=== PATIENT | female | born 1990 | race Caucasian/White ===

== ENCOUNTER 2025-02-09 17:00 | Outpatient (CLI) | payer OTHER, SELFPAY ==
--- OUTSIDE RECORDS SUMMARY | 2025-02-10 17:04 | XMS_ITS | Encounter Summary ---
Author Organization [employer] ([place], [place], [place], [place], [place]) Address [address] [place] [address] Care Team Providers Care Outpatient Coding Specialist Name Role Phone Unavailable Primary Care Provider Unavailabl e Encounter Details Date Type Department Care Team (Late st Contact Info) Description 05/03/2018 Transcribed Document [facility] [place] Family Medicine [facility] [place] [address] ProviderKatty MD [facility] [place] [address] Social History Tobacco Use Types Packs/Day Years Used Date Smoking Tobacco: Never Assessed Comments Unknown Sex and Gender Information Value Date Recorded Sex Assigned at Female 09/27/2021 8:27 PM CDT Legal Sex Female 8:27 PM CDT Gender Identity Female 09/27/2021 8:27 PM CDT Sexual Orientation Not on file documented as of this encounter Miscellaneous Notes * Cerner Conversion Note - Katty ProviderMD - 05/03/2018 8:26 AM APPLICATION SUPPORT ADMINISTRATOR ED Assessment Entered On: 05/03/2018 8:51 EST Performed On: 05/03/2018 8:51 EST by SHREE WAGNER RN ED Quick Look Assessment Level of Consciousness : Alert Affect/Behavior : Calm, Cooperative SHREE WAGNER RN - 05/03/2018 8:51 EST ED General-Functional Assess Communication Barrier : None Primary Language : Bengali Any Spiritual/Cultural Needs or Requests : No Currently in Unsafe Situation : No SHREE WAGNER RN - 05/03/2018 8:51 EST Social Habits Smoking Status : Never (less than 100 in lifetime; none in last 30 days) Smokeless Tobacco Status : Never Desires Tobacco Cessation Calc : 0 SHREE WAGNER RN - 05/03/2018 8:51 EST Social History (As Of: 05/03/2018 08:51:56 EST) Tobacco: Never (less than 100 in lifetime) Smoking Status. (Last Updated: 05/03/2018 08:38:38 EST by SHREE WAGNRE RN) Respiratory Respiratory Assessment WDL : WDL SHREE WAGNER RN - 05/03/2018 8:51 EST Gastrointestinal ED Gastrointestinal Assessment WDL : WDL with exceptions Gastrointestinal Symptoms : Abdominal pain, Nausea SHREE WAGNER RN - 05/03/2018 8:51 EST Genitourinary Assessment, ED Genitourinary Assessment WDL : WDL with exceptions Genitourinary Symptoms : Hematuria Genitorurinary Notes : C/O LEFT FLANK PAIN SHREE WAGNER RN - 05/03/2018 8:51 EST Electronically signed by Ken [facility] Conversion Cruise Agent Cerner at 07/17/2022 1:46 PM CDT documented in this encounter Plan of Treatment Not on file documented as of this encounter Visit Diagnoses Not on filedocumented in this encounter
--- OUTSIDE RECORDS SUMMARY | 2025-02-10 17:04 | XMS_ITS | Encounter Summary ---
Author Organization [employer] ([place], [place], [place], [place], [place]) Address [address] [place] [address] Care Team Providers Care Revenue Stamper Name Role Phone Unavailable Primary Care Provider Unavailabl e Encounter Details Date Type Department Care Team (Late st Contact Info) Description 05/03/2018 Transcribed Document [facility] Family Medicine [facility] [place] [address] ProviderKatty MD [facility] [place] [address] Social History Tobacco Use Types Packs/Day Years Used Date Smoking Tobacco: Never Assessed Comments Unknown Sex and Gender Information Value Date Recorded Sex Assigned at Female 09/27/2021 8:27 PM CDT Legal Sex Female 8:27 PM CDT Gender Identity Female 09/27/2021 8:27 PM CDT Sexual Orientation Not on file documented as of this encounter Miscellaneous Notes * Cerner Conversion Note - Historical ProviderMD - 05/03/2018 1:44 PM DELIVERY OF SHOPPING NEWS ED Discharge Entered On: 05/03/2018 13:44 EST Performed On: 05/03/2018 13:44 EST by SHREE WAGNER RN Discharge Process Patient Disposition : Discharge Personal Belongings With Patient : Yes Patient Education Completed : Yes Teaching Evaluation : Verbalizes understanding IV Discontinued : Yes Nursing Documentation Completed : Yes SHREE WAGNER RN - 05/03/2018 13:44 EST documented in this encounter Plan of Treatment Not on file documented as of this encounter Visit Diagnoses Not on filedocumented in this encounter
--- OUTSIDE RECORDS SUMMARY | 2025-02-10 17:04 | XMS_ITS | Encounter Summary ---
Author Organization [employer] ([place], [place], [place], [place], [place]) Address [address] [place] [address] Care Team Providers Care Pig Machine Crane Operator Name Role Phone Unavailable Primary Care Provider Unavailabl e Encounter Details Date Type Department Care Team (Late st Contact Info) Description 05/03/2018 Transcribed Document [facility] Family Medicine [facility] [place] [address] ProviderKatty MD [address] [place] [address] Social History Tobacco Use Types Packs/Day [...] - Katty ProviderMD - 05/03/2018 8:26 AM COMPUTER NETWORK ENGINEER ED Triage Entered On: 05/03/2018 8:38 EST Performed On: 05/03/2018 8:36 EST by SHREE WAGNER RN ED Triage Across the Room Triage Date/Time : 05/03/2018 8:36 EST Chief Complaint : C/O LEFT SIDED FLANK PAIN SINCE LAST NIGHT, + HEMATURIA SHREE WAGNER RN - 05/03/2018 8:36 EST DCP GENERIC CODE Tracking Acuity : 3 - Urgent Tracking Group : [facility] [place] SHREE WAGNER RN - 05/03/2018 8:36 EST Mode of Arrival : Ambulatory Transported to ED by : Private vehicle To Room Via : Ambulate Accompanied By : Unaccompanied ED Vital Signs : Document Height & Weight : Document ED Allergies : Document ED Reason for Visit : Document SHREE WAGNER RN - 05/03/2018 8:36 EST Infectious Disease History Infectious Disease History : None Fever/Chills Last 48 Hours : No Travel To Regions with Travel Advisories : No Travel Outside [place] Within Last 30 Days : No Contact With Traveler to Advisory Region : No Tuberculosis Symptoms : None SHREE WAGNER RN - 05/03/2018 8:36 EST Vital Signs ED Temperature Mode : Fahrenheit Temperature, Fahrenheit : 98.6 Deg F Clinical Temperature, C : 37 Deg C Peripheral Pulse Rate : 88 bpm Respiratory Rate : 18 Breaths/Min Systolic Blood Pressure : 135 mmHg Diastolic Blood Pressure : 72 mmHg Oxygen Saturation : 99 % SHREE WAGNER RN - 05/03/2018 8:36 EST Allergy (As Of: 05/03/2018 08:38:02 EST) Allergies (Active) penicillin Estimated Onset Date: Unspecified ; Created By: SHREE WAGNER RN; Reaction Status: Active ; Category: Drug ; Substance: penicillin ; Type: Allergy ; Updated By: SHREE WAGNER RN; Reviewed Date: 05/03/2018 8:37 EST sulfa drugs Estimated Onset Date: Unspecified ; Created By: SHREE WAGNER RN; Reaction Status: Active ; Category: Drug ; Substance: sulfa drugs ; Type: Allergy ; Updated By: SHREE WAGNER RN; Reviewed Date: 05/03/2018 8:37 EST Diagnosis Control ED (As Of: 05/03/2018 08:38:02 EST) Problems(Active) IBS (irritable bowel syndrome) (SNOMED CT :74035000 ) Name of Problem: IBS (irritable bowel syndrome) ; Recorder: SHREE WAGNER RN; Confirmation: Confirmed ; Classification: Medical ; Code: [id number] ; Contributor System: PowerChart ; Last Updated: 05/03/2018 8:37 EST ; Life Cycle Date: 05/03/2018 ; Life Cycle Status: Active ; Vocabulary: SNOMED CT PCOS (polycystic ovarian syndrome) (SNOMED CT :180407008 ) Name of Problem: PCOS (polycystic ovarian syndrome) ; Recorder: SHREE WAGNER RN; Confirmation: Confirmed ; Classification: Medical ; Code: [id number] ; Contributor System: LiquidHubChart ; Last Updated: 05/03/2018 8:37 EST ; Life Cycle Date: 05/03/2018 ; Life Cycle Status: Active ; Vocabulary: SNOMED CT Diagnoses(Active) Flank pain Date: 05/03/2018 ; Diagnosis Type: Reason For Visit ; Confirmation: Complaint of ; Clinical Dx: Flank pain ; Classification: Medical ; Clinical Service: Emergency medicine ; Code: PNED ; Probability: 0 ; Diagnosis Code: [id number] ED Height and Weight Height Source : Stated Height Entry Format : [place] Height, Feet : 5 ft(Converted to: 152 cm, 60 Inch) Height, Inches : 10 Inch(Converted to: 0 ft 10 Inch, 25.40 cm) Clinical Height : 177.8 cm Weight Source, ED : Critical estimated dosing weight Weight Entry Format : [place] Weight, Pounds : 265 lb Clinical Dosing Weight : 120.45 kg Body Surface Area (BSA) : 2.35 m2 Body Mass Index : 38.1 kg/m2 (HI) [place] Body Weight (IBW) : 68.02 kg SHREE WAGNER RN - 05/03/2018 8:36 EST Electronically signed by Ken [facility] Conversion Corner Brace Block Machine Operator Cerner at 07/17/2022 1:40 PM CDT documented in this encounter Plan of Treatment Not on file documented as of this encounter Visit Diagnoses Not on filedocumented in this encounter
--- OUTSIDE RECORDS SUMMARY | 2025-02-10 17:04 | XMS_ITS | Encounter Summary ---
Author Organization [employer] ([place], [place], [place], [place], [place]) Address [address] [place] [address] Care Team Providers Care Wood Window And Door Craftsman Name Role Phone Unavailable Primary Care Provider Unavailabl e Encounter Details Date Type Department Care Team (Late st Contact Info) Description 05/03/[address] [facility] [place] Family Medicine [place] [address] ProviderKatty [place] [address] Social History Tobacco Use Types [...] Conversion Note - Historical ProviderMD - 05/03/2018 8:58 AM AFTER SCHOOL PROGRAM COORDINATOR Pain Assessment Entered On: 05/03/2018 9:54 EST Performed On: 05/03/2018 9:53 EST by SHREE WAGNER RN Intervention Information: morphine Performed by SHREE WAGNER RN on 05/03/2018 09:09:00 EST morphine,4mg IV Push,Forearm Left Pain Assessment Pain Assessment : Follow-up assessment Pain Scale Used : 0-10 Scale SHREE WAGNER RN - 05/03/2018 9:53 EST Pain Scale Intensity : 5 SHREE WAGNER RN - 05/03/2018 9:53 EST Image 4 - Images currently included in the form version of this document have not been included in the text rendition version of the form. documented in this encounter Plan of Treatment Not on file documented as of this encounter Visit Diagnoses Not on filedocumented in this encounter
--- OUTSIDE RECORDS SUMMARY | 2025-02-10 17:04 | XMS_ITS | Encounter Summary ---
Author Organization [employer] ([place], [place], [place], [place], [place]) Address [address] [place] [address] Care Team Providers Care Application Support Manager Name Role Phone Unavailable Primary Care Provider Unavailabl e Encounter Details Date Type Department Care Team (Late st Contact Info) Description 05/03/2018 Transcribed Document [facility] [place] Family Medicine [facility] [place] [address] ProviderKatty MD [facility] [place] [address] Social History Tobacco Use Types [...] Conversion Note - Katty ProviderMD - 05/03/2018 1:45 PM DISPATCH OFFICER [address] [place] [address] PERSON INFORMATION Name BREONNA COOPER Age 28 Years 1990 Sex Female Language Montserratian PCP [address]ODI [address] Marital Status Med Service Emergency Medicine Acct# Arrival 05/03/2018 08:26:00 Visit Reason Flank pain; ABDOMINAL PAIN, LEFT SIDE PAIN Acuity 3 - Urgent LOS 000 05:19 Depart Date: 05/03/18 01:45 PM Address: [place] [address] Comment: PROVIDER INFORMATION Provider Role Assigned Unassigned SHREE WAGNER, SHIRT CLOSER Nurse 05/03/2018 08:38:10 BHAVYA HONEYCUTT MD-[facility] ED Physician 05/03/2018 08:39:18 DIAGNOSIS Flank pain; Pyelonephritis PHYS DOC NOTES VITALS INFORMATION Vital Sign Triage Latest Temp Source Temp Mode Fahrenheit Fahrenheit Temp Fahrenheit 98.6 Deg F 98.6 Deg F Temp Celsius 02 Sat 99 % 96 % Respiratory Rate 18 Breaths/Min 18 Breaths/Min Peripheral Pulse Rate 88 bpm 88 bpm Apical Heart Rate Blood Pressure 135 mmHg / 72 mmHg 114 mmHg / 58 mmHg Comment: MEDICAL INFORMATION Allergy Info: sulfa drugs; penicillin Medications: Prescription Display acetaminophen-hydrocodone ([place] 5 mg-325 mg oral tablet) 1 Tab, Oral, Q6H, PRN for pain, X 2 Day(s), # 8 Tab, 0 Refill(s) cefUROXIME (Ceftin 500 mg oral tablet) 1 Tab, Oral, BID, X 10 Day(s), # 20 Tab, 0 Refill(s) Comment: DISCHARGE INFORMATION Discharge Disposition: Home Discharge Location: PATIENT EDUCATION INFORMATION Instructions: Flank Pain, Adult; Pyelonephritis, Adult Follow up: With: Address: When: Return to emergency department Within As needed Comments: Return if condition worsens With: Address: When: COLLIN WAGGONER [address] [place] [address], [address] [place] [address] [facility] () Within 2 to 3 days With: Address: When: Patient Resource Center Within As needed Comments: For assistance in the future with finding a primary care physician please contact the Patient Resource Center [phone]. Comment: documented in this encounter Plan of Treatment Not on file documented as of this encounter Visit Diagnoses Not on filedocumented in this encounter
--- OUTSIDE RECORDS SUMMARY | 2025-02-10 17:04 | XMS_ITS | Encounter Summary ---
Author Organization [employer] ([place], [place], [place], [place], [place]) Address [address] [place] [address] Care Team Providers Care Water Supply Engineer Name Role Phone Unavailable Primary Care Provider Unavailabl e Encounter Details Date Type Department Care Team (Late st Contact Info) Description 05/03/2018 Transcribed Document [facility] [place] [facility] [place] [address] ProviderKatty MD [facility] [place] [address] Social History Tobacco Use Types [...] Conversion Note - Historical ProviderMD - 05/03/2018 10:35 AM PROTECTION SPECIALIST Pain Assessment Entered On: 05/03/2018 12:00 EST Performed On: 05/03/2018 12:00 EST by SHREE WAGNER RN Intervention Information: morphine Performed by DAVID DUBON on 05/03/2018 11:04:00 EST morphine,4mg IV Push,Peripheral Line 1 Pain Assessment Pain Assessment : Follow-up assessment Pain Scale Used : 0-10 Scale SHREE WAGNER RN - 05/03/2018 12:00 EST Pain Scale Intensity : 4 SHREE WAGNER RN - 05/03/2018 12:00 EST Image 4 - Images currently included in the form version of this document have not been included in the text rendition version of the form. documented in this encounter Plan of Treatment Not on file documented as of this encounter Visit Diagnoses Not on filedocumented in this encounter
--- OUTSIDE RECORDS SUMMARY | 2025-02-10 17:04 | XMS_ITS | Encounter Summary ---
Author Organization [employer] ([place], [place], [place], [place], [place]) Address [address] [place] [address] Care Team Providers Care Scheduler Conveyor Name Role Phone Unavailable Primary Care Provider Unavailabl e Encounter Details Date Type Department Care Team (Late st Contact Info) Description 05/03/2018 Transcribed Document [facility] [place] [facility] [place] [address] ProviderKatty MD [facility] [place] [address] Social History Tobacco Use Types [...] Conversion Note - Historical ProviderMD - 05/03/2018 1:28 PM BRAIDING MACHINE TENDER Electronically signed by Ken [facility] Conversion Pocket Creaser Cerner at 07/17/2022 1:42 PM CDT documented in this encounter Plan of Treatment Not on file documented as of this encounter Visit Diagnoses Not on filedocumented in this encounter
--- OUTSIDE RECORDS SUMMARY | 2025-02-10 17:04 | XMS_ITS | Encounter Summary ---
Author Organization [employer] ([place], [place], [place], [place], [place]) Address [address] [place] [address] Care Team Providers Care Egg Sorter Name Role Phone Unavailable Primary Care Provider Unavailabl e Encounter Details Date Type Department Care Team (Late st Contact Info) Description 05/03/2018 Transcribed Document [facility] [place] [facility] [place] [address] ProviderKatty MD [facility] [place] [address] Social History Tobacco Use Types Packs/Day Years Used Date Smoking Tobacco: Never Assessed Comments Unknown Sex and Gender Information Value Date Recorded Sex Assigned at Female 09/27/2021 8:27 PM CDT Legal Sex Female 8:27 PM CDT Gender Identity Female 09/27/2021 8:27 PM CDT Sexual Orientation Not on file documented as of this encounter Miscellaneous Notes * Cerner Conversion Note - Katty Payton MD - 05/03/2018 8:57 AM 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 History source: Patient. Arrival mode: Private vehicle, walking. History limitation: None. Additional information: Chief Complaint from Nursing Triage Note : Chief Complaint 05/03/2018 8:36 EST Chief Complaint C/O LEFT SIDED FLANK PAIN SINCE LAST NIGHT, + HEMATURIA . History of Present Illness The patient presents with flank pain. The onset was 1 days ago. The course/duration of symptoms is constant. The character of symptoms is sharp. The degree at onset was minimal. The Location of pain at onset was left and flank. The degree at present is moderate. The Location of pain at present is left and flank. Radiating pain: none. The exacerbating factor is none. The relieving factor is none. Therapy today: see nurses notes. Risk factors consist of Irritable bowel syndrome. Associated symptoms: nausea, denies chest pain, denies vomiting, denies diarrhea, denies back pain, denies shortness of breath, denies fever, denies chills, denies headache and denies dizziness. Patient complaining of pain in her left flank started last night, complaining of nausea, dysuria and hematuria no fever or chills no vomiting or diarrhea. Review of Systems Constitutional symptoms: No fever, no chills, no decreased activity. Skin symptoms: No rash, no pruritus, no harmon, no petechiae, no lesion. Eye symptoms: No recent vision problems, no pain, no discharge. ENMT symptoms: No ear pain, no sore throat, no nasal congestion. Respiratory symptoms: No shortness of breath, no cough. Cardiovascular symptoms: No chest pain, no palpitations, no tachycardia, no syncope, no diaphoresis, no peripheral edema. Gastrointestinal symptoms: Nausea, no vomiting, no diarrhea. Genitourinary symptoms: Dysuria, hematuria, no vaginal bleeding, no vaginal discharge. Musculoskeletal symptoms: No back pain, no Muscle pain, no Joint pain. Neurologic symptoms: No headache, no dizziness, no altered level of consciousness. Psychiatric symptoms: No anxiety, no depression. Endocrine symptoms: No polyuria, Hematologic/Lymphatic symptoms: Bleeding tendency negative, Allergy/immunologic symptoms: No seasonal allergies, Additional review of systems information: No recent travel or surgery. No Abx recently. No change in meds recently No history of trauma or injury Denies IVDA . Health Status Allergies: Allergic Reactions (Selected) Severity Not Documented Penicillin- No reactions were documented. Sulfa drugs- No reactions were documented.. Medications: Per nurse's notes. Immunizations: Per nurse's notes. Menstrual history: Last menstrual period: Date 03/16/2019. Past Medical/ Family/ Social History Medical history Reviewed as documented in chart. Gastrointestinal: irritable bowel syndrome. Genitourinary: PCOS. Surgical history: No active procedure history items have been selected or recorded., Reviewed as documented in chart. Family history: No family history items have been selected or recorded., Reviewed as documented in chart. Social history: Social & Psychosocial Habits Tobacco 05/03/2018 Smoking Status Never (less than 100 in l , Reviewed as documented in chart. Problem list: Active Problems (2) IBS (irritable bowel syndrome) PCOS (polycystic ovarian syndrome) , per nurse's notes. Physical Examination Vital Signs Vital Signs/Vital Measures 05/03/2018 8:36 EST Temperature Mode Fahrenheit Temperature, Fahrenheit 98.6 Deg F Clinical Temperature, C 37 Deg C Peripheral Pulse Rate 88 bpm Respiratory Rate 18 Breaths/Min Systolic Blood Pressure 135 mmHg Diastolic Blood Pressure 72 mmHg Oxygen Saturation 99 % . Measurements 05/03/2018 8:36 EST Height Source Stated Height Entry Format [place] Height/Length, CITIZEN [place] (ft) 5 ft Height/Length CITIZEN [place] 10 Inch CLINICALHEIGHT 177.8 cm [place] Body Weight 68.02 kg Weight Source, ED Critical estimated dosing weight Weight Entry Format [place] Weight Citizen [place] lb 265 lb CLINICALWEIGHT 120.45 kg Body Surface Area (BSA) 2.35 m2 Body Mass Index 38.1 kg/m2 HI . Oxygen Saturation 05/03/2018 8:36 EST Oxygen Saturation 99 % . General: Alert, no acute distress. Skin: Warm, dry, pink, intact, no pallor, no rash, not cyanotic, not cool, not pale. Head: Normocephalic, atraumatic. Neck: Supple. Eye: Pupils are equal, round and reactive to light, extraocular movements are intact, normal conjunctiva. Ears, nose, mouth and throat: Oral mucosa moist, no pharyngeal erythema or exudate, Hearing unchanged. Cardiovascular: Regular rate and rhythm, No murmur, Normal peripheral perfusion, No edema, no cardiac rub, no click. Respiratory: Lungs are clear to auscultation, respirations are non-labored, breath sounds are equal, Symmetrical chest wall expansion. Chest wall: No tenderness, No deformity. Back: Nontender, Normal range of motion, Normal alignment, no step-offs. Musculoskeletal: Normal ROM, normal strength, no tenderness, no swelling, no deformity. Gastrointestinal: Soft, Non distended, Tenderness: Mild, left flank, Guarding: Negative, Rebound: Negative, Bowel sounds: Normal, Organomegaly: Negative, Trauma: Negative, Mass: Negative, Signs: None. Neurological: Alert and oriented to person, place, time, and situation, No focal neurological deficit observed, CN II-XII intact, normal motor observed, normal speech observed, normal coordination observed. Lymphatics: No lymphadenopathy. Psychiatric: Cooperative, appropriate mood & affect, normal judgment. Medical Decision Making Differential Diagnosis: Bowel obstruction, bowel perforation, renal stone, ureteral stone, pancreatitis, urinary tract infection, pyelonephritis, peptic ulcer disease, gastritis, diverticulitis, constipation. Documents reviewed: Emergency department nurses' notes. Results review: Lab results : Lab Results 05/03/2018 8:59 EST Sodium Level 138 mmol/L Potassium Level 3.8 mmol/L Chloride Level 106 mmol/L Carbon Dioxide Level 25 mmol/L Anion Gap 11 Glucose Level 88 mg/dL Blood Urea Nitrogen 7 mg/dL Creatinine Level 0.62 mg/dL eGFR >60 mL/min/1.73m2 eGFR NonAfrican >60 mL/min/1.73m2 Bun/Creatinine 11.3 Calcium Level 8.6 mg/dL Protein Total 7.6 Gram/dL Albumin Level 3.5 Gram/dL Globulin 4.1 Gram/dL A/G Ratio 0.9 LOW Bilirubin Total 0.3 mg/dL Alk Phos 93 Units/Liter AST 15 Units/Liter ALT 29 Units/Liter Lipase Level 61 Units/Liter LOW WBC 8.2 K/uL RBC 4.40 Million/uL Hgb 13.0 Gram/dL Hct 39.6 % MCV 90.0 fL MCH 29.5 pg MCHC 32.8 Gram/dL Platelet Count 253 K/uL MPV 10.5 fL RDW 12.6 % Neut % 70.3 % Neut # 5.80 K/uL Lymph % 19.7 % Lymph # 1.62 K/uL [place] % 6.9 % [place] # 0.57 K/uL Eos % 2.2 % Eos # 0.18 K/uL Baso % 0.5 % Baso # 0.04 K/uL Slide Review No IG# 0 x10(3)/uL IG% 0 % Urine Type U CleanCatch Urine Color Yellow Urine Appearance Clear Urine Specific [place] 1.012 Urine pH Dipstick 6.0 Urine Leukocyte Esterase Large Urine Nitrite Positive Urine Protein Dipstick 30 Urine Glucose Dipstick Negative Urine Ketones Dipstick Negative Urine Urobilinogen Dipstick 0.2 EU/dL Urine Bilirubin Dipstick Negative Urine Blood Dipstick Large Ur RBC 10-20 /HPF Ur WBC 50-100 /HPF Ur WBC Clumps Present Ur Bacteria 2+ Ur Squamous Epithelial Cells 2-5 /HPF HCG Urine Qualitative Negative . Notes: Radiology Results (Last 48 hours) [id number] -- 05/03/2018 08:26 CT Abdomen Pelvis WO (05/03/2018 09:45) Result: CT ABDOMEN AND PELVIS WITHOUT CONTRASTHISTORY: Left lower back and flank pain TECHNIQUE: Axial CT images of the abdomen and pelvis were obtainedwithout contrast. Coronal reformatted images were also obtained.Thisstudy was performed with techniques to keep radiation doses as low asreasonably achievable, (ALARA). Individualized dose reduction techniquesusing automated exposure control or adjustment of mA and/or kV accordingto the patient size were employed.FINDINGS: ABDOMEN: There is left base atelectasis. There is mild perinephricstranding bilaterally with mild fullness of the collecting systemssuggestive of infection. There is no hydronephrosis or nephrolithiasis. The liver, gallbladder, spleen and pancreas have an unremarkableunenhanced appearance. No mass or adenopathy is seen. PELVIS: Images of the pelvis reveal concentric, mild urinary bladderwall thickening with mild adjacent inflammation consistent withcystitis. Uterus and adnexal structures are normal. The appendix isnormal. There is moderate right-sided stool with some debris in theterminal ileum. There are a few scattered mesenteric lymph nodes. [place] or abnormal fluid collection is identified. IMPRESSION: Findings consistent with UTI and cystitis. Recommend correlation withurinalysis.Images reviewed, interpreted, and dictated by Dr. Neil Farr.Transcribed by Kassandra Main (R), Tata (R).I have personally viewed, interpreted and dictated the examination. Ihave read and agree with the above final transcribed report. . Reexamination/ Reevaluation Time: 05/03/2018 10:13:00 . Course: improving. Pain status: decreased. Assessment: exam unchanged. Time: 05/03/2018 11:52:00 . Course: improving. Pain status: decreased. Assessment: exam unchanged. Time: 05/03/2018 13:27:00 . Course: improving. Pain status: resolved. Assessment: ABDOMEN; Soft, No Tenderness, No Guarding. Impression and Plan Diagnosis Flank pain - Discharge, Emergency medicine, Medical Pyelonephritis - Discharge, Emergency medicine, Medical Plan Condition: Improved, Stable. Disposition: Discharged Admit/Transfer/Discharge: Discharge (Order): Start: 05/03/2018 13:34 EST, Discharge to: Home. Prescriptions: Prescription [facility]: [place] 5 mg-325 mg oral tablet (Prescribe): 1 Tab, Oral, Q6H, for 2 Day(s), PRN: for pain, 8 Tab, 0 Refill(s) Ceftin 500 mg oral tablet (Prescribe): 1 Tab, Oral, BID, for 10 Day(s), 20 Tab, 0 Refill(s). Patient was given the following educational materials: Pyelonephritis, Adult, Flank Pain, Adult. Follow up with: [facility] Within As needed For assistance in the future with finding a primary care physician please contact the Patient Resource Center [phone].; ; [facility] Within 2 to 3 days; Return to emergency department Within As needed Return if condition worsens. Counseled: Patient, Regarding diagnosis, Regarding diagnostic results, Regarding treatment plan, Regarding prescription, Patient indicated understanding of instructions. documented in this encounter Plan of Treatment Not on file documented as of this encounter Visit Diagnoses Not on filedocumented in this encounter
--- OUTSIDE RECORDS SUMMARY | 2025-02-10 17:04 | XMS_ITS | Encounter Summary ---
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
--- OUTSIDE RECORDS SUMMARY | 2025-02-10 17:04 | XMS_ITS | Clinical Summary ---
Author Organization 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 Active Active Problems Problem Noted Date Diagnosed Date Abdominal pain 05/31/2012 Chronic diarrhea 05/31/2012 Major depression 05/31/2012 Exercise induced bronchospasm Immunizations Immunization Administration Dates Next Due DTaP 06/20/1996, 3,1991,1991,1991 Hepatitis B, Unspecified Formulation 09/29/2002, 03/05/1995,01/12/1995 HiB, Unspecified Formulation 07/20/1992, 1991,1991,1991 IPV 06/29/2002, 3,1991,1991,1991 MMR 06/20/1996,07/20/1992 Tetanus, Unspecified Formulation 09/29/2002 Varicella 10/31/1995 Surgical History Surgery Date Site/Laterality Comments FRACTURE SURGERY 09/21/08 r ankle Medical History Medical History Date Comments Exercise induced bronchospasm Major depression 05/31/2012 Social History Tobacco Use Types Packs/Day Years Used Date Smoking Tobacco: Never Smokeless Tobacco: Never Alcohol Use Standard Drinks/Week Comments No 0 (1 standard drink = 0.6 oz pur e alcohol) Comments No Sex and Gender Information Value Date Recorded Sex Assigned at Not on file Legal Sex Female 7:12 PM EDT Gender Identity Not on file Sexual Orientation Not on file Last Filed Vital Signs Vital Sign Reading Time Taken Comments Blood Pressure 112/72 09/30/2015 11:25 AM EDT Pulse 80 09/30/2015 11:25 AM EDT Temperature 36.3 C (97.4 F) 09/30/2015 11:25 AM EDT Respiratory Rate 16 09/30/2015 11:2 5 AM EDT Oxygen Saturation 100% 01/09/2013 6:45 PM EDT Inhaled Oxygen Concentration - - Weight 101.2 kg (223 lb 3.2 oz) 016 11:25 AM EDT Height 177.8 cm (5' 10 ) 09/30/2015 11: 25 AM EDT Body Mass Index 32.03 09/30/2015 11:25 AM EDT Plan of Treatment Health Maintenance Due Date Last Done Comments Annual Wellness Exam 1994 DTaP/TDaP/Td (6 - Tdap) 2002 06/20/18 97, 07/20/1992, 1991, Additional history exists Pap Smear 12/31/2017 12/31/2014 Cervical Cancer Screening 2021 HPV/Pap Cotest 2021 COVID-19 Vaccine (2024- season) 2024 Influenza Vaccine (#1) 2024 03/30/2015 (Declin ed) Hepatitis B Vaccine Completed 09/29/2002, 03/05/1995, 01/12/1995 Meningococcal B Vaccine Aged Out No l onger eligible based on patient's age to complete this topic Pneumococcal Vaccine 0-49 Aged Out No longer eligible based on patient's age to complete this topic Goals Goal Patient Goal Type Associated Problems Recent Progress Patient-Stated? Author Maintain a healthy diet, exercise regularly and maintain an ideal body weight General No Christin Benedict LPN Insurance ANTHEM PPO ANTHEM PPO ANTHEM PPO [place] PPO
--- OUTSIDE RECORDS SUMMARY | 2025-02-10 17:04 | XMS_ITS | Clinical Summary ---
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
--- OUTSIDE RECORDS SUMMARY | 2025-02-10 17:04 | XMS_ITS | Encounter Summary ---
Author Organization [employer] ([place], [place], [place], [place], [place]) Address [address] [place] [address] Care Team Providers Care Longitudinal Float Operator Name Role Phone Unavailable Primary Care Provider Unavailabl e Encounter Details Date Type Department Care Team (Late st Contact Info) Description 05/03/2018 Transcribed Document [facility] [place] [facility] [place] [address] ProviderKatty MD [address] [place] [id number] Social History Tobacco Use Types Packs/Day [...] - Katty ProviderMD - 05/03/2018 1:45 PM SPECIAL EDUCATION ASSISTANT [address] [place] [address] Patient Information Name: BREONNA COOPER Age: 28 Years Date of : 1990 Arrival Time: 05/03/2018 08:26:00 Diagnosis Flank pain; Pyelonephritis Primary Care Physician: JODI SUMMERS DR Provider Information Primary Provider: BHAVYA HONEYCUTT Secondary Provider: BREONNA COOPER has been given the following list of patient education materials, prescriptions and follow-up instructions: Follow-up Instructions: With: Address: When: Return to emergency department Within As needed Comments: Return if condition worsens With: Address: When: COLLIN WAGGONER [address] [facility], [address] [place] [address] Business (1) Within 2 to 3 days With: Address: When: Patient Resource Center Within As needed Comments: For assistance in the future with finding a primary care physician please contact the Patient Resource Center [phone]. Patient Education Materials: Flank Pain Flank pain refers to pain that is located on the side of the body between the upper abdomen and the back. The pain may occur over a short period of time (acute) or may be long-term or reoccurring (chronic). It may be mild or severe. Flank pain can be caused by many things. CAUSES Some of the more common causes of flank pain include: ??? Muscle strains. ? Muscle spasms. ? A disease of your spine (vertebral disk disease). ? A lung infection (pneumonia). ? Fluid around your lungs (pulmonary edema). ? A kidney infection. ? Kidney stones. ? A very painful skin rash caused by the chickenpox virus (shingles). ? Gallbladder disease. ? HOME CARE INSTRUCTIONS Home care will depend on the cause of your pain. In general, ??? Rest as directed by your caregiver. ??? Drink enough fluids to keep your urine clear or pale yellow. ??? Only take ykah-soq-oszpstt or prescription medicines as directed by your caregiver. Some medicines may help relieve the pain. ??? Tell your caregiver about any changes in your pain. ??? Follow up with your caregiver as directed. SEEK IMMEDIATE MEDICAL CARE IF: ??? Your pain is not controlled with medicine. ? You have new or worsening symptoms. ??? Your pain increases. ? You have abdominal pain. ? You have shortness of breath. ? You have persistent nausea or vomiting. ? You have swelling in your abdomen. ? You feel faint or pass out. ? You have blood in your urine. ??? You have a fever or persistent symptoms for more than 2?3 days. ??? You have a fever and your symptoms suddenly get worse. MAKE SURE YOU: ??? Understand these instructions. ??? Will watch your condition. ??? Will get help right away if you are not doing well or get worse. This information is not intended to replace advice given to you by your health care provider. Make sure you discuss any questions you have with your health care provider. Document Released: 05/10/2006 Document Revised: 12/11/2012 Document Reviewed: 12/21/2015 [employer] Patient Education ? 2017 [employer] Pyelonephritis, Adult Introduction Pyelonephritis is a kidney infection. The kidneys are the organs that filter a person's blood and move waste out of the bloodstream and into the urine. Urine passes from the kidneys, through the ureters, and into the bladder. There are two main types of pyelonephritis: ??? Infections that come on quickly without any warning (acute pyelonephritis). ??? Infections that last for a long period of time (chronic pyelonephritis). In most cases, the infection clears up with treatment and does not cause further problems. More severe infections or chronic infections can sometimes spread to the bloodstream or lead to other problems with the kidneys. What are the causes? This condition is usually caused by: ??? Bacteria traveling from the bladder to the kidney through infected urine. The urine in the bladder can become infected with bacteria from:? Bladder infection (cystitis). ? Inflammation of the prostate gland (prostatitis). ? Sexual intercourse, in females. ??? Bacteria traveling from the bloodstream to the kidney. What increases the risk? This condition is more likely to develop in:??? women. ??? Older people. ??? People who have diabetes. ??? People who have kidney stones or bladder stones. ??? People who have other abnormalities of the kidney or ureter. ??? People who have a catheter placed in the bladder. ??? People who have cancer. ??? People who are sexually active. ??? Women who use spermicides. ??? People who have had a prior urinary tract infection. What are the signs or symptoms? Symptoms of this condition include:??? Frequent urination. ??? Strong or persistent urge to urinate. ??? Burning or stinging when urinating. ??? Abdominal pain. ??? Back pain. ??? Pain in the side or flank area. ??? Fever. ??? Chills. ??? Blood in the urine, or dark urine. ??? Nausea. ??? Vomiting. How is this diagnosed? This condition may be diagnosed based on:??? Medical history and physical exam. ??? Urine tests. ??? Blood tests. You may also have imaging tests of the kidneys, such as an ultrasound or CT scan. How is this treated? Treatment for this condition may depend on the severity of the infection.??? If the infection is mild and is found early, you may be treated with antibiotic medicines taken by mouth. You will need to drink fluids to remain hydrated. ??? If the infection is more severe, you may need to stay in the hospital and receive antibiotics given directly into a vein through an IV tube. You may also need to receive fluids through an IV tube if you are not able to remain hydrated. After your hospital stay, you may need to take oral antibiotics for a period of time. Other treatments may be required, depending on the cause of the infection. Follow these instructions at home: Medicines??? Take xjnh-[id number]-pnuivbx and prescription medicines only as told by your health care provider. ??? If you were prescribed an antibiotic medicine, take it as told by your health care provider. Do not stop taking the antibiotic even if you start to feel better. General instructions??? Drink enough fluid to keep your urine clear or pale yellow. ??? Avoid caffeine, tea, and carbonated beverages. They tend to irritate the bladder. ??? Urinate often. Avoid holding in urine for long periods of time. ??? Urinate before and after sex. ??? After a bowel movement, women should cleanse from front to back. Use each tissue only once. ??? Keep all follow-up visits as told by your health care provider. This is important. Contact a health care provider if: ??? Your symptoms do not get better after 2 days of treatment. ??? Your symptoms get worse. ??? You have a fever. Get help right away if: ??? You are unable to take your antibiotics or fluids. ??? You have shaking chills. ??? You vomit. ??? You have severe flank or back pain. ??? You have extreme weakness or fainting. This information is not intended to replace advice given to you by your health care provider. Make sure you discuss any questions you have with your health care provider. Document Released: 2006 Document Revised: 08/24/2016 Document Reviewed: 07/12/2015 ? 2017 [employer] Allergies: sulfa drugs; penicillin Medication Information: Prescription Display acetaminophen-hydrocodone ([place] 5 mg-325 mg oral tablet) 1 Tab, Oral, Q6H, PRN for pain, X 2 Day(s), # 8 Tab, 0 Refill(s) cefUROXIME (Ceftin 500 mg oral tablet) 1 Tab, Oral, BID, X 10 Day(s), # 20 Tab, 0 Refill(s) Laboratory or Other Results This Visit (last charted value for your 05/03/2018 visit) Hematology 05/03/18 08:59:00 WBC: 8.2 K/uL -- Normal range between ( 3.9 and 10.0 ) RBC: 4.40 Million/uL -- Normal range between ( 3.93 and 5.22 ) Hct: 39.6 % -- Normal range between ( 34.1 and 44.9 ) Hgb: 13.0 Gram/dL -- Normal range between ( 11.2 and 15.7 ) Platelet Count: 253 K/uL -- Normal range between ( 163 and 369 ) MCH: 29.5 pg -- Normal range between ( 25.6 and 32.2 ) MCHC: 32.8 Gram/dL -- Normal range between ( 32.3 and 36.5 ) MCV: 90.0 fL -- Normal range between ( 79.0 and 94.8 ) Slide Review: No Eos %: 2.2 % -- Normal range between ( 1.0 and 7.0 ) Hart #: 0.57 K/uL -- Normal range between ( 0.24 and 0.82 ) Eos #: 0.18 K/uL -- Normal range between ( 0.04 and 0.54 ) Hart %: 6.9 % -- Normal range between ( 4.7 and 12.5 ) Baso %: 0.5 % -- Normal range between ( 0.0 and 1.0 ) Baso #: 0.04 K/uL -- Normal range between ( 0.01 and 0.08 ) RDW: 12.6 % -- Normal range between ( 11.6 and 14.4 ) Neut %: 70.3 % -- Normal range between ( 34.0 and 71.0 ) Neut #: 5.80 K/uL -- Normal range between ( 1.56 and 6.13 ) Lymph %: 19.7 % -- Normal range between ( 19.3 and 53.0 ) Lymph #: 1.62 K/uL -- Normal range between ( 1.18 and 3.74 ) MPV: 10.5 fL -- Normal range between ( 9.4 and 12.4 ) IG#: 0 x10(3)/uL IG%: 0 % -- Normal range between ( 0 and 1 ) Urinalysis 05/03/18 08:59:00 Ur RBC: 10-20 /HPF Urine Nitrite: Positive Urine Leukocyte Esterase: Large Urine Appearance: Clear Urine Glucose Dipstick: Negative Urine Blood Dipstick: Large Urine Type: U CleanCatch Urine Urobilinogen Dipstick: 0.2 EU/dL -- Normal range between ( 0.2 and 1.0 ) Urine Protein Dipstick: 30 Ur Bacteria: 2+ Ur WBC Clumps: Present Ur Squamous Epithelial Cells: 2-5 /HPF Urine Color: Yellow Ur WBC: 50-100 /HPF Urine Ketones Dipstick: Negative Urine pH Dipstick: 6.0 -- Normal range between ( 6.0 and 8.0 ) Urine Bilirubin Dipstick: Negative Urine Specific Welch: 1.012 -- Normal range between ( 1.005 and 1.030 ) General Chemistry 05/03/18 08:59:00 Creatinine Level: 0.62 mg/dL -- Normal range between ( 0.55 and 1.02 ) Sodium Level: 138 mmol/L -- Normal range between ( 136 and 146 ) Potassium Level: 3.8 mmol/L -- Normal range between ( 3.5 and 5.1 ) Chloride Level: 106 mmol/L -- Normal range between ( 102 and 112 ) Carbon Dioxide Level: 25 mmol/L -- Normal range between ( 21 and 32 ) Anion Gap: 11 -- Normal range between ( 9 and 20 ) Bilirubin Total: 0.3 mg/dL -- Normal range between ( 0.2 and 1.3 ) A/G Ratio: 0.9 -- Normal range between ( 1.1 and 2.5 ) ALT: 29 Units/Liter -- Normal range between ( 12 and 78 ) AST: 15 Units/Liter -- Normal range between ( 5 and 37 ) Globulin: 4.1 Gram/dL -- Normal range between ( 1.5 and 4.5 ) Alk Phos: 93 Units/Liter -- Normal range between ( 27 and 136 ) Bun/Creatinine: 11.3 -- Normal range between ( 8.0 and 20.0 ) Calcium Level: 8.6 mg/dL -- Normal range between ( 8.5 and 10.1 ) eGFR : >60 mL/min/1.73m2 eGFR NonAfrican: >60 mL/min/1.73m2 Glucose Level: 88 mg/dL -- Normal range between ( 74 and 106 ) Blood Urea Nitrogen: 7 mg/dL -- Normal range between ( 7 and 22 ) Protein Total: 7.6 Gram/dL -- Normal range between ( 6.4 and 8.2 ) Albumin Level: 3.5 Gram/dL -- Normal range between ( 3.4 and 5.0 ) Lipase Level: 61 Units/Liter -- Normal range between ( 73 and 393 ) Endocrinology 05/03/18 08:59:00 HCG Urine Qualitative: Negative Computed Tomography 05/03/18 09:45:29 CT Abdomen Pelvis WO: CT Abdomen Pelvis WO Medication Comment: Procedures: Laboratory Orders Name Status AutoDiff Completed C URINE Ordered CBCD Completed CMP Completed LIPASE Completed UAMICIND Completed UAMICRX Completed UHCG Completed Radiology Orders Name Status CT Abdomen Pelvis WO Completed Cardiology Orders No cardiology orders were placed. This statement is to verify that BREONNA COOPER was seen at [facility] Emergency Department on ,05/03/2018 13:45:26. This is not a work excuse, if a work excuse was needed it will be in addition to this statement as a separate form. IMPORTANT: The examination and treatment you have received in the Emergency Department has been done to provide an appropriate evaluation and stabilizing treatment on an emergency basis only. Given the limited resources, it is not meant to be a substitute for complete medical care. The follow-up doctor you named will receive a copy of your records and all test reports. IT IS IMPORTANT THAT YOU SCHEDULE A FOLLOW-UP APPOINTMENT AND ARE RE-EVALUATED. You should report any new complaints, symptoms, or remaining problems at that time. IT IS IMPOSSIBLE FOR THE EMERGENCY DEPARTMENT TO RECOGNIZE AND TREAT ALL ELEMENTS OF INJURY OR ILLNESS IN A SINGLE VISIT. If you have been referred to a specialist physician, it means that we believe you may have a condition that requires the expertise of a specialist. KEEP IN MIND THAT THE SPECIALIST HAS HIS/HER OWN OFFICE POLICIES WHICH MAY REQUIRE PROPER INSURANCE OR PAYMENT UP FRONT BEFORE THE SPECIALIST WILL SEE YOU. It is your responsibility to call the specialist physician to make an appointment. We do not have the ability to identify specialists/physicians that work with specific insurance companies. Please be advised that all financial charges or billing practices are determined by that practice, not the hospital. If your insurance company requires that you see a specialist from their approved list, it is your responsibility to contact your insurance company to make those arrangements. It is also your responsibility to follow any other requirements of your insurance company necessary to obtain coverage for claims submitted. If you had special tests, such as EKG???s or X-rays, the interpretation of your tests given to you by the Emergency Dept. Physician is a preliminary report. Some fractures and illnesses fail to show up on preliminary tests. We will review them again within 24-48 hours. We will call you if there are any new suggestions. If your symptoms continue notify your physician. After you leave, you should follow the instructions below. In all events, you may obtain a copy of your Emergency Department visit from Medical Records. Please call to be directed to this department. We will bill your insurance; however, you are responsible today for any co-pay amounts. You will receive a separate bill for any services you may have received including: emergency, radiology, or pathology physicians. Please be sure we have an accurate contact phone number and address, should we need to call you for any reason. CIGARETTE SMOKING: The facts are clear; cigarette smoking will shorten your life. Smoking can cause many illnesses along the way. As a healthcare provider, E recommends that you stop smoking. Assistance with quitting is available by contacting 8-289-JFMU-NOW. This is a free resource providing counseling, support, and referral. Or you may contact your personal physician. As part of your treatment plan, your physician may have prescribed a limited course of a controlled substance. This medication may be given to help people with moderate or severe pain or for other medical conditions, but there are risks involved with treatment. Common side effects may include nausea, constipation, drowsiness, sweating, itching, dry mouth, and rash. More serious side effects may include cognitive and motor impairment, like problems with thinking, concentrating, alertness, and movement (e.g. slowed reflexes), and driving and operating heavy machinery can be dangerous. It is important for you to talk to your physician if you have these side effects or questions. These controlled substances can produce physical dependence and be habit-forming if taken for an extended period of time, which means that the body has gotten used to them and may experience withdrawal symptoms if they are abruptly stopped. Withdrawal symptoms can include runny nose, sweating, goose bumps, diarrhea, abdominal cramping, rapid heartbeat, difficulty sleeping, and nervousness. The home medications listed are only as accurate as the information you provided. Please continue taking all of your medications prescribed by your Primary Care Provider unless specifically told to change or discontinue the medication. Please direct any questions regarding your home medications to your Primary Care Provider. YOU ARE THE MOST IMPORTANT FACTOR IN YOUR RECOVERY. ?? Follow your instructions carefully ?? Take your medicines as prescribed ?? Most important, see a provider as discussed. If you do not have a provider, we can provide a list of clinics Confidential This message and accompanying documents are covered by Electronic Communications Privacy Act 18 U.S.C. ???Sections 5516-0167,?? and contain information intended for the specified individual(s) only. This information is confidential. If you are not the intended recipient or an agent responsible for delivering it to the intended recipient, you are hereby notified that you have received the document in error and that any review, dissemination, copying, or the taking of any action based on the contents of this information is strictly prohibited. If you have received this communication in error, please notify us immediately by email, and delete the original message. 4 WAYS TO GET AHEAD OF SEPSIS SEPSIS is a MEDICAL EMERGENCY. Time matters! Infections put you and your family at risk for a life-threatening condition called sepsis. Sepsis is the body???s extreme response to an infection. It is life-threatening, and without timely treatment, sepsis can rapidly lead to tissue damage, organ failure, and . Sepsis happens when an infection you already have???in your skin, lungs, urinary tract or somewhere else???triggers a chain reaction throughout your body. 1 PREVENT INFECTIONS Take good care of chronic conditions. Talk to your doctor about getting the recommended vaccines. 2 PRACTICE GOOD HYGIENE Wash your hands frequently. Keep cuts or open sores clean and covered until they are healed. 3 KNOW THE SYMPTOMS Confusion or disorientation Shortness of breath High heart rate Fever, shivering, or feeling very cold Extreme pain or discomfort Clammy or sweaty skin 4 ACT FAST Get medical care IMMEDIATELY if you suspect sepsis or if you have an infection that???s not getting better or is getting worse. To learn more about sepsis and how to prevent infections, visit www.cdc.gov/sepsis. STROKE is an EMERGENCY [employer] ACT F.A.S.T! FACE ?? Facial droop ?? Uneven smile ARM ?? Arm numbness ?? Arm weakness SPEECH ?? Slurred speech ?? Difficulty speaking or understanding TIME ?? Call 911 and get to the hospital immediately Have the ambulance go to the nearest stroke center. STROKE Risk Factors High blood pressure High cholesterol Heart Disease Diabetes Smoking Heavy alcohol use Physical inactivity and obesity Atrial Fibrillation (irregular heartbeat) Family history of stroke Acknowledgment I hereby acknowledge receipt of these instructions and information above. I understand that I have received Emergency Treatment only which is not a substitute for complete medical care and acknowledge that all of my medical problems may not be known, identified, or treated prior to my release. I UNDERSTAND THE NEED TO ARRANGE FOLLOW-UP CARE WITH THE PHYSICIAN INDICATED. I UNDERSTAND THAT I SHOULD CONTACT MY PHYSICIAN IMMEDIATELY OR RETURN TO THE EMERGENCY DEPARTMENT IF MY CONDITION WORSENS, FAILS TO IMPROVE, OR NEW SYMPTOMS APPEAR. Vital Signs B/P PULSE RESP. RATE TEMPERATURE PULSE OX Signature of Emergency Provider Date / Time Signature of Emergency Nurse Date / Time Reminder: Be sure to sign up for the [facility] patient portal, which gives you 23/10 access to your medical information ??? including these discharge instructions ??? using your computer, smartphone, or tablet. Just go to replaced by [email or web address] to get started. Questions? Call . Acknowledgment I hereby acknowledge receipt of these instructions and information above. I understand that I have received Emergency Treatment only which is not a substitute for complete medical care and acknowledge that all of my medical problems may not be known, identified, or treated prior to my release. I UNDERSTAND THE NEED TO ARRANGE FOLLOW-UP CARE WITH THE PHYSICIAN INDICATED. I UNDERSTAND THAT I SHOULD CONTACT MY PHYSICIAN IMMEDIATELY OR RETURN TO THE EMERGENCY DEPARTMENT IF MY CONDITION WORSENS, FAILS TO IMPROVE, OR NEW SYMPTOMS APPEAR. Signature of Patient / Responsible Person Date / Time Please provide a telephone number where you can be reached. The best time to call is between: It is permissible to leave a message if no answer: Yes____ No____ Nurse Providing Instructions: Emergency Physician: documented in this encounter Plan of Treatment Not on file documented as of this encounter Visit Diagnoses Not on filedocumented in this encounter
--- OUTSIDE RECORDS SUMMARY | 2025-02-10 17:04 | XMS_ITS | Encounter Summary ---
Author Organization [employer] ([place], [place], [place], [place], [place]) Address [address] [place] [address] Care Team Providers Care Gum Worker Name Role Phone Unavailable Primary Care Provider Unavailabl e Encounter Details Date Type Department Care Team (Late st Contact Info) Description 05/08/2018 Transcribed Document [facility] Radiology [address] [place] [address] Jose Miguel Nino MD [address] [place] [address] Dept. of [place] [address] Social History Tobacco Use Types Packs/Day Years Used Date Smoking Tobacco: Never Assessed Comments Unknown Sex and Gender Information Value Date Recorded Sex Assigned at Female 09/27/2021 8:27 PM CDT Legal Sex Female 8:27 PM CDT Gender Identity Female 09/27/2021 8:27 PM CDT Sexual Orientation Not on file documented as of this encounter Miscellaneous Notes * [employer]ner Conversion Note - Jose Miguel Nino MD - 05/08/2018 11:46 AM EST Urine Culture Collected: 05/03/2018 Esccol Complete Body site: Specimen Type: U CleanCatch 05/05/2018 08:30 05/08/2018 10:46 (JOSE MIGUEL NINO MD-EMR) Reviewed by Provider, No further action required cephalosporin sensitive Electronically signed by [facility] Conversion Transfer And Line Up Worker Cerner at 07/17/2022 2:00 PM CDT documented in this encounter Plan of Treatment Not on file documented as of this encounter Visit Diagnoses Not on filedocumented in this encounter
--- OUTSIDE RECORDS SUMMARY | 2025-02-10 17:04 | XMS_ITS | Referral Summary ---
Author Organization [employer] ([place], [place], [place], [place], [place]) Address [address] [place] [address] Care Team Providers Care Ordained Minister Name Role Phone Unavailable Primary Care Provider [...]
--- OUTSIDE RECORDS SUMMARY | 2025-02-10 17:04 | XMS_ITS | Patient Health Record ---
Author Organization [facility] Address [address] [place] [id number] Care Team Providers Care Trans Router Name Role Phone Rin Headley MD Primary Care Provider Unavaila ble Allergies Allergen (clinical drug ingredient) Drug/Non Drug Allergy documented on EMR Reaction Allergy Type Onset Date Status Penicillin rash Drug Allergy Active Substance with sulfonamide structure and antibacterial mechanism of action (substance) Sulfa Antibiotics rash Drug Allergy Active Reason For Referral No Information Medications Medication SIG (Take, Route, Frequency, Duration) Notes Start Date End Date Status 27-1 MG 1 tab(s) orally once a day Active Fluticasone Propionate 50 MCG/ACT 1 spray in each nostril Nasally Once a day; Duration: 30 days 11/13/2023 Active Immunizations Vaccine Route Administration Date Status Comme nts [id number] Fluzone Quad PFS (0.5mL Admin) 6 months & older Unknown 03/06/2022 Administered given in the pas t Social History Tobacco Use: Social History Observation Description Date Details (start date - stop date) Never Smoker NA - NA Alcohol Misuse/Abuse (Audit C): Question Answer Notes Did you have a drink containing alcohol in the p ast year? No Points: 0 Interpretation: Negative Tobacco Control (Standard) Question Answer Notes Tobacco use: Nonsmoker AUDIT-C (Standard) Question Answer Notes Did you have a drink containing alcohol in the p ast year? No Points 0 Interpretation Negative Problems Problem Type SNOMED Code ICD Code Onset Dates Problem Status W/U Status Risk Notes Problem Acute cough (30952223862300 9104) Acute cough (R05.1) Inactive confirmed Problem Abdominal pain (53248542) Unspecified abdominal pain (R10.9) Inactive confirmed Problem Obesity (902483863) Obesity (BMI 35.0-39.9 without comorbidity) (E66.9) Active confirmed Problem Diarrhea (13000016) Diarrhea, unspecified (R19.7) Inactive confirmed Problem Polycystic ovary syndrome (disorder) (301752252) PCOS (polycystic ovarian syndrome) (E28.2) Active confirmed Plan Of Treatment Pending Test Test Name Order Date Influenza Screen(IH) 05/05/2016 Rapid Strep Screen (IH) 05/05/2016 Insurance Providers Payer Name Payer Address Payer Phone Subscriber Number Group Number Insured Name Patient Relationship to Insured Coverage Start Date Coverage End Date [facility] [address] [place] [address] [phone] [id number] Breonna Cooper Self - patient is the insured Medications Administered Medication Instructions Date of Administration Dosage Notes Depo Medrol 80mg/mL SDV (80mg Admin) 01/01/2017 80 mg Medical (General) History Medical History History ICD Code PCOS (polycystic ovarian syndrome) E28.2 Surgical History Surgery Date(Month/Year) c- section 07/24 C section Hospitalization History Reason Date(Month/Year) see above
== END 2025-02-09 23:59 | disposition home or self-care (01) ==
LOC: LAB.DROPOF 02-10 17:01
PROVIDERS: Visit Provider Student in an Organized Health Care Education/Training Program
DX: N39.0 Urinary tract infection, site not specified (principal)
CPT/HCPCS: 87086; 87088